=== PATIENT | male | born 1985 | race Caucasian/White ===

== ENCOUNTER 2021-06-24 14:16 | Emergency (ER) | payer OTHER | END 2021-06-24 15:12 | disposition home or self-care (01) | LOC: CC.ED 14:16 | DX: S52.324A Nondisplaced transverse fracture of shaft of right radius, initial encounter for closed fracture (principal); E78.00 Pure hypercholesterolemia, unspecified; I10 Essential (primary) hypertension; W22.09XA Striking against other stationary object, initial encounter | CPT/HCPCS: 29125; 73090-RT; 99283-25 ==